=== PATIENT | female | born 1990 | race Caucasian/White ===

== ENCOUNTER 2017-09-10 05:53 | Emergency (ER) | payer MEDICAID ==
[2017-09-10 05:58] VITALS: BP 125/82
[2017-09-10] MEDS ORDERED: DEXAMETHASONE 10 MG/ML VIAL PO STA (06:12)
--- NOTE | 2017-09-10 06:15 | ED Physician Documentation ---
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 She is having some difficulty swallowing she has had some chills she has had minimal cough. Review of Systems Constitutional: reports: Chills. denies: Fever Eyes: denies: Decreased vision Ears: denies: Ear pain Nose: reports: Congestion Throat: reports: Sore throat Cardiac: denies: Chest pain / pressure, Palpitations Respiratory: reports: Cough. 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 - Present Medications Home Medications: Ambulatory Orders Medication Instructions Recorded Confirmed Levonorgestrel [Mirena] 1 unit .ROUTE .FREQ 06/21/16 09/10/17 Amox/Clav 875/125 [Augmentin] 1 each PO Q12H #20 tablet 09/10/17 - Allergies Allergies/Adverse Reactions: Allergies Allergy/AdvReac Type Severity Reaction Status Date / Time azithromycin Allergy Intermediate Rash Verified 09/10/17 06:09 [From Zithromax Z-Álvaro] - Social History Does the pt smoke?: No Smoking Status: Never smoker Does the pt drink ETOH?: Yes Does the pt have substance abuse?: No - Immunizations Immunizations are current?: Yes - POLST Patient has POLST: No PD ED PE NORMAL - Vitals Vital signs reviewed: Yes (hypertensive ) - General General: No acute distress, Well developed/nourished - HEENT HEENT: Atraumatic, PERRL, EOMI, Ears normal, Other (the pharynx is with 2+ tonsils with crypts and exudate) - Neck Neck: Supple, no meningeal sign, No bony TTP, Other (tender submandibular adenopathy) - Cardiac Cardiac: RRR, No murmur - Respiratory Respiratory: No respiratory distress, Clear bilaterally - Abdomen Abdomen: Soft, Non tender - Back Back: No CVA TTP, No spinal TTP - Derm Derm: Normal color, Warm and dry, No rash - Extremities Extremities: No deformity, No edema - Neuro Neuro: No motor deficit, No sensory deficit - Psych Psych: Normal mood, Normal affect Results - Vitals Vitals: Vital Signs - 24 hr 09/10/17 05:57 Temperature 36.6 C Heart Rate 77 Respiratory 16 Rate Blood Pressure 125/82 H O2 Saturation 98 Oxygen O2 Source Room air - Labs Labs: Laboratory Tests 09/10/17 06:15 Group A Strep Rapid Negative PD MEDICAL DECISION MAKING - ED course Complexity details: considered differential, d/w patient ED course: 27-year-old female with history of strep pharyngitis is developed a sore throat strep swab is pending. Strep is negative. The patient is administered decadron and we will put her on some augmentin. Departure - Departure Disposition: 01 Home, Self Care Clinical Impression: Tonsillitis with exudate Condition: Stable Instructions: ED Peritonsillar Infec Abx No I andD Follow-Up: [facility] [Provider Group] Prescriptions: Amox/Clav 875/125 [Augmentin] 1 each PO Q12H #20 tablet Comments: Today in the Emergency Department your blood pressure was elevated. This can happen from the stress of the visit itself, from a current illness or circumstance or from uncontrolled hypertension. If you take blood pressure medications take your usual mediations, have your blood pressure re-checked in an appropriate setting and follow up any elevation with your primary care doctor. Forms: Activity restrictions
[2017-09-10] MEDS ORDERED: DEXAMETHASONE 10 MG/ML VIAL ONE (06:22)
[2017-09-10] MEDS ORDERED: CHERRY SYRUP 10 ML UDC PO ONE (06:22)
[2017-09-10 06:29] LABS: RAPID STREP SCREEN REAGENT QC YELLOW (YELLOW)
== END 2017-09-10 07:00 | disposition home or self-care (01) ==
LOC: ED 05:53
DX: J03.90 Acute tonsillitis, unspecified (principal); R03.0 Elevated blood-pressure reading, without diagnosis of hypertension
CPT/HCPCS: 87070; 87430; 99283; A9270

== ENCOUNTER 2018-08-26 19:04 | Emergency (ER) | payer MEDICAID ==
[2018-08-26] MEDS ORDERED: ACETAMINOPHEN 325 MG TABLET PO STA (19:26)
[2018-08-26] MEDS ORDERED: SODIUM CHLORIDE 0.9% 1,000 ML IV ONE (19:26)
--- NOTE | 2018-08-26 19:27 | ED Physician Documentation ---
History of Present Illness - Stated complaint Stated Complaint: FEVER/CONFUSION - Chief complaint Chief Complaint: Fever - History obtained from History obtained from: Patient, Family - History of Present Illness Timing: Yesterday (Previously healthy 28-year-old woman with history of Bartholin cyst. She had a Bartholin cyst for the last 2 weeks on the left that ruptured on its own and is much better now but starting yesterday has had fevers and chills and body aches and today has a headache and feels terrible. She has had some urinary frequency without dysuria. Denies cough, sore throat, runny nose.) Review of Systems Ten Systems: 10 systems reviewed and negative Constitutional: reports: Fever, Chills, Fatigue Ears: denies: Drainage/discharge Nose: denies: Rhinorrhea / runny nose, Congestion, Epistaxis Throat: denies: Sore throat Respiratory: denies: Dyspnea, Cough GI: denies: Abdominal Pain, Nausea, Vomiting : reports: Frequency. 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 - Present Medications Home Medications: Ambulatory Orders Medication Instructions Recorded Confirmed Levonorgestrel [Mirena] 1 unit .ROUTE .FREQ 06/21/16 09/10/17 Amox/Clav 875/125 [Augmentin] 1 each PO Q12H #20 tablet 09/10/17 Amox/Clav 875/125 [Augmentin 1 tab PO BID 10 Days #20 tablet 08/26/18 875/125] - Allergies Allergies/Adverse Reactions: Allergies Allergy/AdvReac Type Severity Reaction Status Date / Time azithromycin Allergy Intermediate Rash Verified 09/10/17 06:09 [From Zithromax Z-Álvaro] - Social History Does the pt smoke?: No Smoking Status: Never smoker Does the pt drink ETOH?: Yes Does the pt have substance abuse?: No - Immunizations Immunizations are current?: Yes - POLST Patient has POLST: No PD ED PE NORMAL - Vitals Vital signs reviewed: Yes (Fairly tachycardic) - General General: Alert and oriented X 3, No acute distress, Well developed/nourished - HEENT HEENT: PERRL, EOMI - Neck Neck: Supple, no meningeal sign, No bony TTP - Cardiac Cardiac: RRR, No murmur - Respiratory Respiratory: No respiratory distress, Clear bilaterally - Abdomen Abdomen: Normal bowel sounds, Soft, Non tender - Female Female : Waterproofing Supervisor present (Jazz Wheeler RN), Other (Small residual left Bartholin cyst without fluctuance or fluid-filled. She is not tender.) - Back Back: No CVA TTP, No spinal TTP - Derm Derm: Normal color, Warm and dry - Extremities Extremities: No edema, No calf tenderness / cord - Neuro Neuro: Alert and oriented X 3, Normal speech Results - Vitals Vitals: Vital Signs - 24 hr 08/26/18 08/26/18 08/26/18 19:08 19:30 20:04 Temperature 38.4 C H Heart Rate 131 H 122 H 116 H Respiratory 22 20 18 Rate Blood Pressure 148/89 H 134/78 H 128/58 L O2 Saturation 97 99 98 08/26/18 20:19 Temperature Heart Rate 105 H Respiratory 19 Rate Blood Pressure 120/54 L O2 Saturation 98 Oxygen O2 Source Room air - Labs Labs: Laboratory Tests 08/26/18 08/26/18 08/26/18 19:35 19:35 19:35 WBC 15.0 H RBC 4.79 Hgb 14.1 Hct 41.3 MCV 86.2 MCH 29.5 MCHC 34.3 RDW 13.4 Plt Count 286 MPV 8.0 Neut # (Auto) 12.2 H Lymph # (Auto) 1.5 [place] # (Auto) 1.0 Eos # (Auto) 0.2 Baso # (Auto) 0.1 Absolute Nucleated RBC 0.01 Nucleated RBC % 0.1 Sodium 137 Potassium 3.8 Chloride 105 Carbon Dioxide 23 Anion Gap 9.0 BUN 11 Creatinine 0.6 Estimated GFR (MDRD) 118 Glucose 103 H Lactic Acid 1.0 Calcium 9.0 Total Bilirubin 0.6 AST 38 ALT 49 Alkaline Phosphatase 74 Total Protein 8.2 Albumin 4.1 Globulin 4.1 Albumin/Globulin Ratio 1.0 Lipase 25 Serum HCG, Qual Urine Color Urine Clarity Urine pH Ur Specific [place] Urine Protein Urine Glucose (UA) Urine Ketones Urine Occult Blood Urine Nitrite Urine Bilirubin Urine Urobilinogen Ur Leukocyte Esterase Urine RBC Urine WBC Ur Squamous Epith Cells Urine Bacteria Ur Microscopic Review Urine Culture Comments Influenza A (Rapid) Influenza B (Rapid) 09/08/26/18 08/26/18 19:35 19:47 20:00 WBC RBC Hgb Hct MCV MCH MCHC RDW Plt Count MPV Neut # (Auto) Lymph # (Auto) [place] # (Auto) Eos # (Auto) Baso # (Auto) Absolute Nucleated RBC Nucleated RBC % Sodium Potassium Chloride Carbon Dioxide Anion Gap BUN Creatinine Estimated GFR (MDRD) Glucose Lactic Acid Calcium Total Bilirubin AST ALT Alkaline Phosphatase Total Protein Albumin Globulin Albumin/Globulin Ratio Lipase Serum HCG, Qual NEGATIVE Urine Color YELLOW Urine Clarity CLEAR Urine pH 6.0 Ur Specific [place] 1.025 Urine Protein TRACE Urine Glucose (UA) NEGATIVE Urine Ketones NEGATIVE Urine Occult Blood MODERATE H Urine Nitrite NEGATIVE Urine Bilirubin NEGATIVE Urine Urobilinogen 0.2 (NORMAL) Ur Leukocyte Esterase NEGATIVE Urine RBC 0-5 Urine WBC 0-3 Ur Squamous Epith Cells MANY Squamous H Urine Bacteria Rare Ur Microscopic Review INDICATED Urine Culture Comments NOT INDICATED Influenza A (Rapid) Negative Influenza B (Rapid) Negative PD MEDICAL DECISION MAKING - ED course ED course: 28-year-old woman with fever chills body aches, also fever and significant tachycardia. She does have a white count, but her lactate and other labs are reassuring. No pertinent findings on chest x-ray or urinalysis. She has a Bartholin cyst that really does not look too bad. It could be that, but I doubt it, some other virus or unidentified bacterial infection. I think it is reasonable to start her on Unasyn for broad-spectrum coverage and Bartholin cyst coverage. After 1 L of IV fluids her heart rate was down into the 105-110 range. - Sepsis Event Vital Signs: Vital Signs - 24 hr 08/26/18 08/26/18 08/26/18 19:08 19:30 20:04 Temperature 38.4 C H Heart Rate 131 H 122 H 116 H Respiratory 22 20 18 Rate Blood Pressure 148/89 H 134/78 H 128/58 L O2 Saturation 97 99 98 08/26/18 20:19 Temperature Heart Rate 105 H Respiratory 19 Rate Blood Pressure 120/54 L O2 Saturation 98 Oxygen O2 Source Room air Departure - Departure Disposition: 01 Home, Self Care Clinical Impression: Bartholin cyst Fever Qualifiers: Fever type: due to other condition Qualified Code(s): R50.81 - Fever presenting with conditions classified elsewhere Condition: Good Record reviewed to determine appropriate education?: Yes Instructions: ED Fever Unconf Cause, ED Bartholins Cyst No Infec Prescriptions: Amox/Clav 875/125 [Augmentin 875/125] 1 tab PO BID 10 Days #20 tablet Comments: Return anytime if worse or if new symptoms develop. Drink plenty of fluids and he can take Tylenol or ibuprofen for that body aches and fevers. Forms: Activity restrictions
[2018-08-26 19:42] LABS: BASOPHILS # (AUTO) 0.1 10^3/uL (0.0-0.1); BASOPHILS % (AUTO) 0.3 %; EOSINOPHILS # (AUTO) 0.2 10^3/uL (0.0-0.7); EOSINOPHILS % (AUTO) 1.7 %; HGB - HEMOGLOBIN 14.1 g/dL (12.0-16.0); LYMPHOCYTES # (AUTO) 1.5 10^3/uL (1.5-3.5); LYMPHOCYTES % (AUTO) 9.9 %; MEAN CORPUSCULAR HEMOGLOBIN 29.5 pg (27.0-31.0); MEAN CORPUSCULAR HGB CONC 34.3 g/dL (32.0-36.0); MEAN CORPUSCULAR VOLUME 86.2 fL (81.0-99.0); MONOCYTES % (AUTO) 6.5 %; NEUTROPHILS # (AUTO) 12.2 10^3/uL (1.5-6.6); NEUTROPHILS % (AUTO) 81.6 %; PLT - PLATELET COUNT 286 10^3/uL (130-450); RED BLOOD COUNT 4.79 10^6/uL (4.20-5.40); RED CELL DISTRIBUTION WIDTH 13.4 % (12.0-15.0)
[2018-08-26 19:54] LABS: ALBUMIN 4.1 g/dL (3.2-5.5); BILIRUBIN,TOTAL 0.6 mg/dL (0.2-1.0); CREATININE 0.6 mg/dL (0.4-1.0); TOTAL PROTEIN 8.2 g/dL (6.7-8.2)
[2018-08-26 20:00] LABS: BILIRUBIN,URINE NEGATIVE (NEGATIVE); GLUCOSE, URINE (UA) NEGATIVE (NEGATIVE); KETONES,URINE (UA) NEGATIVE (NEGATIVE); LEUKOCYTE ESTERASE, URINE NEGATIVE (NEGATIVE); NITRITE,URINE NEGATIVE (NEGATIVE); OCCULT BLOOD,URINE MODERATE (NEGATIVE); PROTEIN,URINE TRACE mg/dL (NEGATIVE); UROBILINOGEN,URINE 0.2 (NORMAL) E.U./dL (NORMAL)
[2018-08-26 20:01] LABS: CLARITY,URINE CLEAR (CLEAR)
--- NOTE | 2018-08-26 20:03 | XRAY Report ---
Reason: fever Procedure Date: 08/26/2018 Accession Number: [id number] / [id number] Procedure: XR - Chest 1 View X-Ray CPT Code: 62112 FULL RESULT: EXAM: CHEST RADIOGRAPHY EXAM DATE: 08/26/2018 07:31 PM. CLINICAL HISTORY: Fever. COMPARISON: CHEST 2 VIEW PA/LAT 04/11/2014 4:14 PM. TECHNIQUE: 1 view. FINDINGS: Lungs/Pleura: No focal opacities evident. No pleural effusion. No pneumothorax. Mediastinum: Within exam limitations, the cardiomediastinal contour is normal. Other: None. IMPRESSION: Normal single view chest. RADIA
[2018-08-26 20:04] LABS: HCG,QUALITATIVE BLOOD NEGATIVE
[2018-08-26 20:10] LABS: BACTERIA,URINE Rare /HPF (None Seen); RBC,URINE 0-5 /HPF (0-5); SQUAMOUS EPITHELIAL CELL,UR MANY Squamous (<= Few)
[2018-08-26] MEDS ORDERED: AMPICILLIN/SULBACTAM 3 GM in SODIUM CHLORIDE 0.9% MINIBAG 100 ML IV STA (20:25)
[2018-08-26 21:15] VITALS: BP 120/59
== END 2018-08-26 21:18 | disposition home or self-care (01) ==
LOC: ED 19:04
DX: N75.0 Cyst of Bartholin's gland (principal); R50.81 Fever presenting with conditions classified elsewhere; D72.89 Other specified disorders of white blood cells
CPT/HCPCS: 36415; 71045; 80053; 81001; 83605; 83690; 84703; 85025; 87040; 87275; 87276; 96365; 99283; 99284; A9270; 81003; 87086

== ENCOUNTER 2020-08-29 16:15 | Outpatient (CLI) | payer MEDICAID, OTHER ==
[2020-08-29 18:39] LABS: BASOPHILS # (AUTO) 0.1 10^3/uL (0.0-0.1); BASOPHILS % (AUTO) 0.3 %; EOSINOPHILS # (AUTO) 0.3 10^3/uL (0.0-0.7); EOSINOPHILS % (AUTO) 2.3 %; HGB - HEMOGLOBIN 13.7 g/dL (12.0-16.0); LYMPHOCYTES # (AUTO) 3.4 10^3/uL (1.5-3.5); LYMPHOCYTES % (AUTO) 23.7 %; MEAN CORPUSCULAR HEMOGLOBIN 29.2 pg (27.0-31.0); MEAN CORPUSCULAR HGB CONC 32.5 g/dL (32.0-36.0); MEAN PLATELET VOLUME 10.5 fL (7.9-10.8); MONOCYTES # (AUTO) 0.8 10^3/uL (0.0-1.0); MONOCYTES % (AUTO) 5.4 %; NEUTROPHILS # (AUTO) 9.8 10^3/uL (1.5-6.6); NEUTROPHILS % (AUTO) 67.9 %; PLT - PLATELET COUNT 327 10^3/uL (130-450); RED BLOOD COUNT 4.69 10^6/uL (4.20-5.40); RED CELL DISTRIBUTION WIDTH 12.5 % (12.0-15.0); WHITE BLOOD COUNT 14.5 x10^3/uL (4.8-10.8)
[2020-08-29 18:53] LABS: ALBUMIN 4.4 g/dL (3.2-5.5); ALBUMIN/GLOBULIN RATIO 1.3 (1.0-2.2); BILIRUBIN,TOTAL 0.4 mg/dL (0.2-1.0); CALCIUM 9.3 mg/dL (8.5-10.3); CREATININE 0.6 mg/dL (0.4-1.0); TOTAL PROTEIN 7.8 g/dL (6.7-8.2)
== END 2020-08-29 23:59 | disposition home or self-care (01) ==
LOC: LAB.WCP 16:15
PROVIDERS: ATTEND Nurse Practitioner Family
DX: L65.9 Nonscarring hair loss, unspecified (principal); F32.9 Major depressive disorder, single episode, unspecified
CPT/HCPCS: 36415; 80053; 84443; 85025

== ENCOUNTER 2020-09-05 13:57 | Outpatient (CLI) | payer MEDICAID, OTHER ==
[2020-09-05 18:30] LABS: BASOPHILS # (AUTO) 0.1 10^3/uL (0.0-0.1); BASOPHILS % (AUTO) 0.6 %; BILIRUBIN,URINE NEGATIVE (NEGATIVE); EOSINOPHILS # (AUTO) 0.4 10^3/uL (0.0-0.7); EOSINOPHILS % (AUTO) 3.5 %; GLUCOSE, URINE (UA) NEGATIVE (NEGATIVE); HGB - HEMOGLOBIN 13.1 g/dL (12.0-16.0); KETONES,URINE (UA) NEGATIVE (NEGATIVE); LEUKOCYTE ESTERASE, URINE NEGATIVE (NEGATIVE); LYMPHOCYTES % (AUTO) 28.9 %; MEAN CORPUSCULAR HEMOGLOBIN 29.1 pg (27.0-31.0); MEAN CORPUSCULAR VOLUME 91.1 fL (81.0-99.0); MEAN PLATELET VOLUME 10.6 fL (7.9-10.8); MONOCYTES # (AUTO) 0.8 10^3/uL (0.0-1.0); MONOCYTES % (AUTO) 7.9 %; NEUTROPHILS # (AUTO) 6.1 10^3/uL (1.5-6.6); NEUTROPHILS % (AUTO) 58.7 %; NITRITE,URINE NEGATIVE (NEGATIVE); OCCULT BLOOD,URINE TRACE-INTA (NEGATIVE); PH,URINE 7.5 PH (5.0-7.5); PLT - PLATELET COUNT 276 10^3/uL (130-450); PROTEIN,URINE NEGATIVE (NEGATIVE); RED CELL DISTRIBUTION WIDTH 12.7 % (12.0-15.0); UROBILINOGEN,URINE 0.2 (NORMAL) E.U./dL (NORMAL); WHITE BLOOD COUNT 10.4 x10^3/uL (4.8-10.8)
[2020-09-05 18:43] LABS: CLARITY,URINE HAZY (CLEAR); RBC,URINE 0-5 /HPF (0-5); SQUAMOUS EPITHELIAL CELL,UR NONE SEEN (<= Few)
[2020-09-05 18:44] LABS: AMORPHOUS SEDIMENT,UR Moderate /LPF; BACTERIA,URINE None Seen /HPF (None Seen)
== END 2020-09-05 23:59 | disposition home or self-care (01) ==
LOC: LAB.WCP 13:57
PROVIDERS: ATTEND Nurse Practitioner Family
DX: D72.829 Elevated white blood cell count, unspecified (principal); R35.0 Frequency of micturition
CPT/HCPCS: 36415; 81001; 85025; 87086

== ENCOUNTER 2021-02-28 20:43 | Emergency (ER) | payer OTHER ==
[2021-02-28 21:27] VITALS: BP 146/70
--- NOTE | 2021-02-28 21:37 | ED Physician Documentation ---
PD HPI SKIN - Stated complaint Stated Complaint: CYST ON CHEST - Chief complaint Chief Complaint: Wound - History obtained from History obtained from: Patient - History of Present Illness Timing - onset: How many days ago (5) Timing - duration: Days (5) Timing - details: Gradual onset Pain level now: 4 Location: Chest (right breast) Quality / character: Painful, Discolored, Raised, Swelling. No: Draining Associated symptoms: Fever (Tmax 101.4), Myalgias, N/V/D (nausea) Similar symptoms before: Diagnosis (has had abscesses in other locations but not on breast before) Recently seen: Not recently seen - Additional information Additional information: c/o right breast "cyst" (per patient) that she first noticed 5 days ago; it has gradually enlarged and become increasingly painful/tender and swollen. She denies and is not breast-feeding. She reports fever starting today with Tmax 101.4 associated with nausea, decreased appetite, generalized myalgias Review of Systems Constitutional: reports: Fever, Myalgias. 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 Medications Home Medications: Ambulatory Orders Medication Instructions Recorded Confirmed Doxycycline Hyclate [Vibramycin] 100 mg PO BID #20 cap 02/28/21 Iud 02/28/21 Ondansetron Odt [Zofran Odt] 4 mg TL Q6H PRN #10 tablet 02/28/21 Sertraline HCl 100 mg PO DAILY 02/28/21 02/28/21 - Allergies Allergies/Adverse Reactions: Allergies Allergy/AdvReac Type Severity Reaction Status Date / Time azithromycin Allergy Intermediate Rash Verified 02/28/21 20:51 [From Zithromax Z-Álvaro] - Social History Does the pt smoke?: No Smoking Status: Never smoker Does the pt drink ETOH?: Yes Does the pt have substance abuse?: No - Immunizations Immunizations are current?: Yes - POLST Patient has POLST: No PD ED PE NORMAL - Vitals Vital signs reviewed: Yes - General General: Alert and oriented X 3, No acute distress, Well developed/nourished - Neck Neck: Supple, no meningeal sign PD ED PE EXPANDED - Female 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 the lesion is slightly raised, moderately tender, but without fluctuance. palpable firm borders indicate sub-centimeter subcutaneous nodule) Results - Vitals Vitals: Vital Signs - 24 hr 02/28/21 02/28/21 20:47 21:25 Temperature 37.3 C 37.3 C Heart Rate 102 H 100 Respiratory 16 16 Rate Blood Pressure 146/71 H 146/70 H O2 Saturation 99 100 Oxygen O2 Source Room air PD MEDICAL DECISION MAKING - ED course Complexity details: considered differential, d/w patient ED course: lesion on right breast is mostly comprised of [id number] raised erythema, c/w cellulitis. There is a sub-centimeter central firmness without fluctuance that might represent induration or possibly abscess, but this would be too small of an area to indicate I+D at this time. will rx doxycycine (first dose in ED) and instructed to return if worse, but f/u with PMD (ideally Thursday so antibiotic will have had time to take effect) Departure - Departure Disposition: Home, Self Care Clinical Impression: Abscess Condition: Good Instructions: ED Staph Infec Abx Tx Only Prescriptions: Doxycycline Hyclate [Vibramycin] 100 mg PO BID #20 cap Ondansetron Odt [Zofran Odt] 4 mg TL Q6H PRN #10 tablet PRN Reason: Nausea / Vomiting Discharge Date/Time: 02/28/21 21:58
[2021-02-28] MEDS ORDERED: DOXYCYCLINE 100 MG TABLET PO STA (21:49)
--- OUTSIDE RECORDS SUMMARY | 2021-03-06 01:24 | EXTERNAL MEDICAL SUMMARY RPT | Continuity of Care Document ---
:1990 Demographics Phone Unavailable Preferred Language Unknown Marital Status Unknown Zoroastrian Affiliation Unknown Race Unknown Ethnic Group Unknown Author Organization [facility] Address [address] [place] [address] Phone Social History date description facility [id number]
== END 2021-02-28 21:58 | disposition home or self-care (01) ==
LOC: ED 20:43
DX: N61.1 Abscess of the breast and nipple (principal); R11.0 Nausea
CPT/HCPCS: 99282; 99283; A9270

== ENCOUNTER 2021-07-07 20:15 | Emergency (ER) | payer OTHER ==
[2021-07-07] MEDS ORDERED: LIDOCAINE 2%-EPI 1:100000 20 ML MDV SUBQ STA (20:59)
--- NOTE | 2021-07-07 21:27 | ED Physician Documentation ---
History of Present Illness - Stated complaint Stated Complaint: MASS IN RT THIGH/NAUSEA - Chief complaint Chief Complaint: Wound - History obtained from History obtained from: Patient, Family - History of Present Illness Timing: Chronic Pain level max: 4 Pain level now: 4 - Additonal information Additional information: 30-year-old female complains of a cyst to the right thigh, has been there for many years, started increasing in size and pain recently. Has had other cysts similar drained in the past. Nothing makes it better or worse. Has had occasional nausea. No fever. Occasional chills. 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 - Present Medications Home Medications: Ambulatory Orders Medication Instructions Recorded Confirmed Iud 02/28/21 Sertraline HCl 100 mg PO DAILY 02/28/21 07/07/21 Multivitamin 1 tab PO DAILY 07/07/21 07/07/21 - Allergies Allergies/Adverse Reactions: Allergies Allergy/AdvReac Type Severity Reaction Status Date / Time azithromycin Allergy Intermediate Rash Verified 02/28/21 20:51 [From Zithromax Z-Álvaro] - Social History Does the pt smoke?: Yes Smoking Status: Current every day smoker Does the pt drink ETOH?: No Does the pt have substance abuse?: No - Immunizations Immunizations are current?: Yes - POLST Patient has POLST: No PD ED PE NORMAL - Vitals Vital signs reviewed: Yes - General General: Alert and oriented X 3, No acute distress - Derm Derm: Warm and dry - Extremities Extremities: Other (2 x 2 centimeter swelling to the right medial thigh, proximal aspect. There is fluctuance but no erythema. No skin changes.) - Neuro Neuro: Alert and oriented X 3 Results - Vitals Vitals: Vital Signs - 24 hr 07/07/21 07/07/21 20:18 21:50 Temperature 37 C 36.7 C Heart Rate 91 84 Respiratory 16 16 Rate Blood Pressure 131/71 H 121/73 O2 Saturation 100 98 Oxygen O2 Source Room air Procedures - Abscess I&D (location) Right thigh Preparation: Confirmed with ultrasound, Lidocaine 2% Incision: Incised with scalpel, Packed, Culture obtained, Other (Thick white drainage) Other: Pt tolerated well, Dressing applied PD MEDICAL DECISION MAKING - ED course Complexity details: considered differential, d/w patient ED course: 30-year-old female appears to have a sebaceous cyst on the right thigh. Does not appear infected. This was incised and drained. Cyst sac was unable to be removed. She will follow up with dermatology for this. Wound culture was obtained. We will hold antibiotics as it does not appear to be active infection. No cellulitis. Patient counseled regarding signs and symptoms for which I believe and urgent re-evaluation would be necessary. Patient with good understanding of and agreement to plan and is comfortable going home at this time This document was made in part using voice recognition software. While efforts are made to proofread this document, sound alike and grammatical errors may occur. Departure - Departure Disposition: 01 Home, Self Care Clinical Impression: Sebaceous cyst Condition: Good Instructions: ED Cyst Sebaceous Follow-Up: [facility] [Provider Group] Comments: Follow-up with dermatology for possible sac removal. Surgery may do this as well. Return if you worsen. Keep the wound clean. The packing can be removed in 2 to 3 days. If your culture is positive, we will call to check on you and see if you need antibiotics at that time. Forms: Activity restrictions Discharge Date/Time: 07/07/21 21:51
[2021-07-07 21:51] VITALS: BP 121/73
== END 2021-07-07 21:51 | disposition home or self-care (01) ==
LOC: ED 20:15
DX: L72.3 Sebaceous cyst (principal); F17.200 Nicotine dependence, unspecified, uncomplicated
CPT/HCPCS: 10061; 87070; 87205

== ENCOUNTER 2021-11-08 15:25 | Outpatient (CLI) | payer OTHER | END 2021-11-08 23:59 | disposition home or self-care (01) | LOC: LAB.N 15:25 | PROVIDERS: ATTEND Family Medicine | DX: R07.0 Pain in throat (principal) | CPT/HCPCS: 87070 ==

== ENCOUNTER 2022-02-03 13:19 | Outpatient (CLI) | payer OTHER ==
[2022-02-03 13:31] LABS: BASOPHILS # (AUTO) 0.1 10^3/uL (0.0-0.1); BASOPHILS % (AUTO) 0.6 %; EOSINOPHILS # (AUTO) 0.4 10^3/uL (0.0-0.7); EOSINOPHILS % (AUTO) 3.8 %; HGB - HEMOGLOBIN 14.3 g/dL (12.0-16.0); LYMPHOCYTES # (AUTO) 3.4 10^3/uL (1.5-3.5); LYMPHOCYTES % (AUTO) 31.3 %; MEAN CORPUSCULAR HEMOGLOBIN 29.1 pg (27.0-31.0); MEAN CORPUSCULAR HGB CONC 33.3 g/dL (32.0-36.0); MEAN CORPUSCULAR VOLUME 87.6 fL (81.0-99.0); MEAN PLATELET VOLUME 10.1 fL (7.9-10.8); MONOCYTES # (AUTO) 0.8 10^3/uL (0.0-1.0); MONOCYTES % (AUTO) 7.8 %; NEUTROPHILS % (AUTO) 56.2 %; PLT - PLATELET COUNT 278 10^3/uL (130-450); RED BLOOD COUNT 4.91 10^6/uL (4.20-5.40); RED CELL DISTRIBUTION WIDTH 12.7 % (12.0-15.0); WHITE BLOOD COUNT 10.7 x10^3/uL (4.8-10.8)
[2022-02-03 13:46] LABS: ALBUMIN 4.4 g/dL (3.2-5.5); ALBUMIN/GLOBULIN RATIO 1.3 (1.0-2.2); BILIRUBIN,TOTAL 0.8 mg/dL (0.2-1.0); CALCIUM 9.2 mg/dL (8.5-10.3); CREATININE 0.7 mg/dL (0.4-1.0); POTASSIUM 3.5 mmol/L (3.5-5.0); TOTAL PROTEIN 7.9 g/dL (6.7-8.2)
[2022-02-03 14:00] LABS: HCG,QUALITATIVE BLOOD NEGATIVE
== END 2022-02-03 13:20 | disposition home or self-care (01) ==
LOC: LAB 13:19
PROVIDERS: ATTEND Nurse Practitioner
DX: N91.2 Amenorrhea, unspecified (principal); R53.83 Other fatigue
CPT/HCPCS: 36415; 80053; 84703; 85025

== ENCOUNTER 2022-08-14 17:03 | Emergency (ER) | payer OTHER ==
--- NOTE | 2022-08-14 17:33 | ED Physician Documentation ---
PD HPI FEMALE - Stated complaint Stated Complaint: CRAMPING & SPOTTING - Chief complaint Chief Complaint: Abd Pain - History obtained from History obtained from: Patient - History of Present Illness Timing - onset: How many days ago (2) Timing - duration: Days Timing - details: Gradual onset, Still present (increased from spotting to bleeding with saturation of pad x few this morning. Lessening this afternoon but still lower abd cramps. Feeling similar to prior miscarriages of years ago.), Waxing and waning Associated symptoms: Abdominal pain, Pelvic pain, Vaginal bleeding. 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 denies: Vomiting, Diarrhea : reports: Vaginal bleeding, Now EGA. denies: Dysuria, Frequency, Discharge Neurologic: reports: Generalized weakness. 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 ) Psych: Anxiety - Past Surgical History Past Surgical History: Yes Ortho: Other /STORAGE SOLUTIONS ARCHITECT: section - Present Medications Home Medications: Ambulatory Orders Medication Instructions Recorded Confirmed Iud 02/28/21 Sertraline HCl 100 mg PO DAILY 02/28/21 07/07/21 Multivitamin 1 tab PO DAILY 07/07/21 07/07/21 - Allergies Allergies/Adverse Reactions: Allergies Allergy/AdvReac Type Severity Reaction Status Date / Time azithromycin Allergy Intermediate Rash Verified 08/14/22 17:06 [From Zithromax Z-Álvaro] - Social History Does the pt smoke?: Yes Smoking Status: Current every day smoker Does the pt drink ETOH?: No Does the pt have substance abuse?: No - Immunizations Immunizations are current?: Yes - POLST Patient has POLST: No PD ED PE NORMAL - Vitals Vital signs reviewed: Yes - General General: Alert and oriented X 3, Well developed/nourished - Neck Neck: Supple, no meningeal sign, No adenopathy - Cardiac Cardiac: RRR, No murmur - Respiratory Respiratory: Clear bilaterally - Abdomen Abdomen: Normal bowel sounds, Soft, Non distended, No organomegaly, Other (mild tender suprapubic withut percusssion tender nor rebound. ) - Female Female : Deferred - Back Back: No CVA TTP - Derm Derm: Normal color, Warm and dry Results - Vitals Vitals: Vital Signs - 24 hr 08/14/22 08/14/22 17:06 19:10 Temperature 36.5 C Heart Rate 82 74 Respiratory 16 18 Rate Blood Pressure 138/83 H 139/79 H O2 Saturation 97 98 Oxygen O2 Source Room air - Labs Labs: Laboratory Tests 08/14/22 08/14/22 08/14/22 17:58 17:58 17:58 WBC 11.4 H RBC 4.77 Hgb 14.0 Hct 41.3 MCV 86.6 MCH 29.4 MCHC 33.9 RDW 12.2 Plt Count 275 MPV 9.9 Neut # (Auto) 6.3 Lymph # (Auto) 3.8 H [place] # (Auto) 0.8 Eos # (Auto) 0.5 Baso # (Auto) 0.1 Absolute Nucleated RBC 0.00 Nucleated RBC % 0.0 Sodium 139 Potassium 3.6 Chloride 105 Carbon Dioxide 27 Anion Gap 7.0 BUN 14 Creatinine 0.9 Estimated GFR (MDRD) 72 L Glucose 102 H Calcium 9.1 Total Bilirubin 0.3 AST 21 ALT 30 Alkaline Phosphatase 54 Total Protein 7.5 Albumin 4.1 Globulin 3.4 Albumin/Globulin Ratio 1.2 Lipase 26 HCG, Quant 9.29 Urine Color Urine Clarity Urine pH Ur Specific [place] Urine Protein Urine Glucose (UA) Urine Ketones Urine Occult Blood Urine Nitrite Urine Bilirubin Urine Urobilinogen Ur Leukocyte Esterase Urine RBC Urine WBC Ur Squamous Epith Cells Amorphous Sediment Urine Bacteria Ur Microscopic Review Urine Culture Comments Urine HCG, Qual 08/14/22 18:03 WBC RBC Hgb Hct MCV MCH MCHC RDW Plt Count MPV Neut # (Auto) Lymph # (Auto) [place] # (Auto) Eos # (Auto) Baso # (Auto) Absolute Nucleated RBC Nucleated RBC % Sodium Potassium Chloride Carbon Dioxide Anion Gap BUN Creatinine Estimated GFR (MDRD) Glucose Calcium Total Bilirubin AST ALT Alkaline Phosphatase Total Protein Albumin Globulin Albumin/Globulin Ratio Lipase HCG, Quant Urine Color YELLOW Urine Clarity CLEAR Urine pH 7.0 Ur Specific [place] 1.020 Urine Protein NEGATIVE Urine Glucose (UA) NEGATIVE Urine Ketones NEGATIVE Urine Occult Blood MODERATE H Urine Nitrite NEGATIVE Urine Bilirubin NEGATIVE Urine Urobilinogen 0.2 (NORMAL) Ur Leukocyte Esterase NEGATIVE Urine RBC TNTC H Urine WBC 0-3 Ur Squamous Epith Cells FEW Squamous Amorphous Sediment Moderate Urine Bacteria Few Ur Microscopic Review INDICATED Urine Culture Comments NOT INDICATED Urine HCG, Qual NEGATIVE - Rads (name of study) OB U/S Radiology: Prelim report reviewed (no IUP. right ovarian complex cyst (hemorrhagic) 2.5 cm, wiht small amount right pelvic fluid. ), Discussed with rads (could be concerning for ectopic, if her HCG rises. ), See rad report PD MEDICAL DECISION MAKING - ED course Complexity details: reviewed results (Quant HCG very low at 9. This is more c/w IUFD and now miscarriage rather than early , but needs confirmatory repeat HCG test in 3 days.), re-evaluated patient (understanding of results and short term plan. ), considered differential (consider miscarriage vs bleeding in normal , ectopic, UTI, other concerns.), d/w patient Departure - Departure Disposition: 01 Home, Self Care Clinical Impression: Early stage of , Vaginal bleeding affecting early Condition: Stable Instructions: ED Miscarriage Poss Follow-Up: [facility] [Provider Group] Lydia Shafer ARNP [Primary Care Provider] - Comments: Your ultrasound does not show any intrauterine . There is a small 1 inch cyst on the right ovary and several small ones on the left. There is a little bit of fluid in the right pelvis. This could possibly represent a small leaking of the cyst. Your quantitative hCG blood test was very low. This may still represent very early and thus no findings on the ultrasound. Alternative would be that there is miscarriage happened/happening and therefore the hCG level has fallen off with the known viability of the . Unfortunately will be hard to differentiate without a repeat of the hCG blood test in about 3 days. With that we will see whether the numbers going up or down. Meanwhile I would anticipate the bleeding to taper down and improve in the next day or 2. Tylenol or ibuprofen if needed for pains. Follow-up with your primary care clinic or the women's health clinic. Call tomorrow for follow-up appointment presumably for Thursday or Thursday. Have the repeat hCG test on in 3 days. Discharge Date/Time: 08/14/22 19:10
[2022-08-14 18:04] LABS: BASOPHILS # (AUTO) 0.1 10^3/uL (0.0-0.1); BASOPHILS % (AUTO) 0.4 %; EOSINOPHILS # (AUTO) 0.5 10^3/uL (0.0-0.7); EOSINOPHILS % (AUTO) 4.1 %; HCT - HEMATOCRIT 41.3 % (37.0-47.0); LYMPHOCYTES # (AUTO) 3.8 10^3/uL (1.5-3.5); LYMPHOCYTES % (AUTO) 33.4 %; MEAN CORPUSCULAR HEMOGLOBIN 29.4 pg (27.0-31.0); MEAN CORPUSCULAR HGB CONC 33.9 g/dL (32.0-36.0); MEAN CORPUSCULAR VOLUME 86.6 fL (81.0-99.0); MEAN PLATELET VOLUME 9.9 fL (7.9-10.8); MONOCYTES # (AUTO) 0.8 10^3/uL (0.0-1.0); MONOCYTES % (AUTO) 6.7 %; NEUTROPHILS # (AUTO) 6.3 10^3/uL (1.5-6.6); NEUTROPHILS % (AUTO) 55.2 %; PLT - PLATELET COUNT 275 10^3/uL (130-450); RED BLOOD COUNT 4.77 10^6/uL (4.20-5.40); RED CELL DISTRIBUTION WIDTH 12.2 % (12.0-15.0); WHITE BLOOD COUNT 11.4 x10^3/uL (4.8-10.8)
[2022-08-14 18:14] LABS: BILIRUBIN,URINE NEGATIVE (NEGATIVE); GLUCOSE, URINE (UA) NEGATIVE (NEGATIVE); KETONES,URINE (UA) NEGATIVE (NEGATIVE); LEUKOCYTE ESTERASE, URINE NEGATIVE (NEGATIVE); NITRITE,URINE NEGATIVE (NEGATIVE); OCCULT BLOOD,URINE MODERATE (NEGATIVE); PROTEIN,URINE NEGATIVE (NEGATIVE); UROBILINOGEN,URINE 0.2 (NORMAL) E.U./dL (NORMAL)
[2022-08-14 18:15] LABS: CLARITY,URINE CLEAR (CLEAR); HCG UR QUAL NEGATIVE
[2022-08-14 18:21] LABS: AMORPHOUS SEDIMENT,UR Moderate /LPF; BACTERIA,URINE Few /HPF (None Seen); RBC,URINE TNTC /HPF (0-5); SQUAMOUS EPITHELIAL CELL,UR FEW Squamous (<= Few); WBC,URINE 0-3 /HPF (0-5)
[2022-08-14 18:24] LABS: ALBUMIN 4.1 g/dL (3.2-5.5); ALBUMIN/GLOBULIN RATIO 1.2 (1.0-2.2); BILIRUBIN,TOTAL 0.3 mg/dL (0.2-1.0); CALCIUM 9.1 mg/dL (8.5-10.3); CREATININE 0.9 mg/dL (0.4-1.0); POTASSIUM 3.6 mmol/L (3.5-5.0); TOTAL PROTEIN 7.5 g/dL (6.7-8.2)
[2022-08-14 19:11] VITALS: BP 139/79
--- NOTE | 2022-08-15 05:42 | Ultrasound Report ---
PROCEDURE: OB First Trimester w/TV INDICATIONS: + HM PREG TEST, VB OUTSIDE/PRIOR DATING DATA: Last menstrual period (LMP): 07/05/2022. LMP-based estimated date of delivery (LEILA): 04/11/2023. First dating scan (date and location): Today. Estimated date of delivery (LEILA) from first dating scan: Not applicable TECHNIQUE: Real-time scanning was performed of the fetus and maternal pelvic organs, with image documentation. Endovaginal scanning was also performed to better visualize the fetus and maternal ovaries. COMPARISON: None FINDINGS: No intrauterine identified. No findings suspicious for ectopic . Right ovarian corpus luteum. IMPRESSION: No identifiable intrauterine , no findings suspicious for ectopic Above discussed with No lundberg at the time of dictation. Apparently, the beta-hCG level is very low. Therefore, recommend correlation with serial beta hCGs and consideration of follow-up ultrasound in 1-2 weeks. Reviewed by: Will Mejía MD on 08/14/2022 7:11 PM PDT Approved by: Will Mejía MD on 08/14/2022 7:11 PM PDT Station ID: [id number]
== END 2022-08-14 19:10 | disposition home or self-care (01) ==
LOC: ED 17:03
DX: O20.9 Hemorrhage in early pregnancy, unspecified (principal); O99.331 Smoking (tobacco) complicating pregnancy, first trimester; F17.200 Nicotine dependence, unspecified, uncomplicated; Z3A.01 Less than 8 weeks gestation of pregnancy
CPT/HCPCS: 36415; 80053; 81001; 81003; 81025; 83690; 84702; 85025; 86900; 86901; 87086; 99284

== ENCOUNTER 2022-08-21 10:38 | Outpatient (CLI) | payer OTHER ==
[2022-08-21 11:26] LABS: THYROID STIMULATING HORMONE 3.7 uIU/mL (0.34-5.60)
[2022-08-21 11:28] LABS: FREE T4 (FREE THYROXINE) 0.78 ng/dL (0.58-1.64)
[2022-08-21 12:56] LABS: ESTIMATED AVERAGE GLUCOSE 94 mg/dL (70-100); HEMOGLOBIN A1c% 4.9 % (4.27-6.07)
== END 2022-08-21 10:39 | disposition home or self-care (01) ==
LOC: LAB 10:38
PROVIDERS: ATTEND Nurse Practitioner
DX: O26.20 Pregnancy care for patient with recurrent pregnancy loss, unspecified trimester (principal)
CPT/HCPCS: 36415; 81599; 83036; 84439; 84443; 85598; 85610; 85613; 85670; 85730; 86146; 86147

== ENCOUNTER 2022-11-18 09:19 | Emergency (ER) | payer OTHER ==
[2022-11-18 09:31] VITALS: BP 129/65
[2022-11-18 10:54] LABS: B. PARAPERTUSSIS- RESP PCR PAN NOT DETECTED; B. PERTUSSIS- RESP PCR PANEL NOT DETECTED; C. PNEUMONIAE- RESP PCR PANEL NOT DETECTED; CORONAVIRUS 229E-RESP PCR NOT DETECTED; CORONAVIRUS HKU1-RESP PCR NOT DETECTED; CORONAVIRUS NL63-RESP PCR NOT DETECTED; CORONAVIRUS OC43-RESP PCR NOT DETECTED; HUMAN METAPNEUMOVIRUS NOT DETECTED; INFLUENZA A H3- RESP PCR PANEL DETECTED; INFLUENZA B - RESP PCR PANEL NOT DETECTED; M. PNEUMONIAE- RESP PCR PANEL NOT DETECTED; PARAINFLUENZA VIRUS 1 NOT DETECTED; PARAINFLUENZA VIRUS 2 NOT DETECTED; PARAINFLUENZA VIRUS 3 NOT DETECTED; PARAINFLUENZA VIRUS 4 NOT DETECTED; RHINOVIRUS/ENTEROVIRUS NOT DETECTED; RSV- RESP PCR PANEL NOT DETECTED; SARS-CoV-2 -RESP PCR PANEL NOT DETECTED
--- NOTE | 2022-11-18 11:16 | ED Physician Documentation ---
PD HPI URI - Stated complaint Stated Complaint: FEVER/BODY ACHE - Chief complaint Chief Complaint: Resp - History obtained from History obtained from: Patient - Additional information Additional information: Patient is a 32-year-old female with no significant past medical history presenting for evaluation of fever, body aches, Productive cough since yesterday morning. 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 She denies vomiting or diarrhea and has been tolerating p.o.She denies chest pain, difficulty breathing, abdominal pain, back pain But generally feels achy everywhere. She is approximately 9 weeks . She denies vaginal bleeding or cramping. Review of Systems Constitutional: reports: Fever, Myalgias Nose: denies: Congestion Cardiac: denies: Chest pain / pressure Respiratory: reports: Cough. 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 ) Psych: Anxiety - Past Surgical History Past Surgical History: Yes Ortho: Other /INJECTION MOLD TOOLING TECHNICIAN: section - Present Medications Home Medications: Ambulatory Orders Medication Instructions Recorded Confirmed Iud 02/28/21 Sertraline HCl 100 mg PO DAILY 02/28/21 07/07/21 Multivitamin 1 tab PO DAILY 07/07/21 07/07/21 - Allergies Allergies/Adverse Reactions: Allergies Allergy/AdvReac Type Severity Reaction Status Date / Time azithromycin Allergy Intermediate Rash Verified 11/18/22 09:31 [From Zithromax Z-Álvaro] - Social History Does the pt smoke?: Yes Smoking Status: Current every day smoker Does the pt drink ETOH?: No Does the pt have substance abuse?: No - Immunizations Immunizations are current?: Yes - POLST Patient has POLST: No PD ED PE NORMAL - General General: Alert and oriented X 3, No acute distress, Well developed/nourished - HEENT HEENT: Atraumatic, Moist mucous membranes, Pharynx benign - Neck Neck: Supple, no meningeal sign - Cardiac Cardiac: RRR, No murmur - Respiratory Respiratory: No respiratory distress, Clear bilaterally - Abdomen Abdomen: Soft, Non tender, Non distended - Back Back: No CVA TTP, No spinal TTP - Derm Derm: Warm and dry - Extremities Extremities: No edema - Neuro Neuro: Normal speech Results - Vitals Vitals: Vital Signs - 24 hr 11/18/22 09:26 Temperature 36.9 C Heart Rate 102 H Respiratory 18 Rate Blood Pressure 129/65 O2 Saturation 96 Oxygen O2 Source Room air - Labs Labs: Laboratory Tests 11/18/22 09:38 Nasal Adenovirus (PCR) NOT DETECTED Nasal B. parapertussis DNA (PCR) NOT DETECTED Nasal Coronavir 229E PCR NOT DETECTED Nasal Coronavir HKU1 PCR NOT DETECTED Nasal Coronavir NL63 PCR NOT DETECTED Nasal Coronavir OC43 PCR NOT DETECTED Nasal Enterovir/Rhinovir PCR NOT DETECTED Nasal Influenza A H3 PCR DETECTED A Nasal Influenza B PCR NOT DETECTED Nasal Parainfluen 1 PCR NOT DETECTED Nasal Parainfluen 2 PCR NOT DETECTED Nasal Parainfluen 3 PCR NOT DETECTED Nasal Parainfluen 4 PCR NOT DETECTED Nasal RSV (PCR) NOT DETECTED Nasal B.pertussis DNA PCR NOT DETECTED Nasal C.pneumoniae (PCR) NOT DETECTED [place] Human Metapneumo PCR NOT DETECTED Nasal M.pneumoniae (PCR) NOT DETECTED Nasal SARS-CoV-2 (PCR) NOT DETECTED PD Medical Decision Making - ED course Complexity details: reviewed results ED course: Patient with fevers, body aches and productive cough.Her breathing is nonlabored and her lung sounds are clear. Her oxygen Levels are normal. Her abdominal exam is benign and she has no complaints of abdominal pain, back pain, bleeding or cramping.She is flu positive. Offered Tamiflu which patient declines. Patient counseled on continuing with supportive care. She is advised on concerning symptoms to return for. Departure - Departure Disposition: 01 Home, Self Care Clinical Impression: Influenza A Condition: Stable Instructions: ED Flu Comments: You have tested positive for influenza A. Please continue with acetaminophen for fevers, plenty of rest and hydration. If you develop any worsening symptoms such as labored breathing, vomiting, Vaginal bleeding or cramping or abdominal pain then please return to the emergency department. Forms: Activity restrictions Discharge Date/Time: 11/18/22 12:24
== END 2022-11-18 12:24 | disposition home or self-care (01) ==
LOC: ED 09:19
DX: J10.1 Influenza due to other identified influenza virus with other respiratory manifestations (principal); Z20.822 Contact with and (suspected) exposure to COVID-19; F17.200 Nicotine dependence, unspecified, uncomplicated
CPT/HCPCS: 87633; 99282; 99283

== ENCOUNTER 2023-07-02 11:25 | Outpatient (CLI) | payer OTHER ==
[2023-07-02 17:43] LABS: BASOPHILS # (AUTO) 0.1 10^3/uL (0.0-0.1); BASOPHILS % (AUTO) 0.7 %; EOSINOPHILS # (AUTO) 0.4 10^3/uL (0.0-0.7); EOSINOPHILS % (AUTO) 4.3 %; HCT - HEMATOCRIT 43.4 % (37.0-47.0); HGB - HEMOGLOBIN 13.6 g/dL (12.0-16.0); LYMPHOCYTES % (AUTO) 36.9 %; MEAN CORPUSCULAR HEMOGLOBIN 27.8 pg (27.0-31.0); MEAN CORPUSCULAR HGB CONC 31.3 g/dL (32.0-36.0); MEAN CORPUSCULAR VOLUME 88.8 fL (81.0-99.0); MEAN PLATELET VOLUME 10.5 fL (7.9-10.8); MONOCYTES # (AUTO) 0.7 10^3/uL (0.0-1.0); MONOCYTES % (AUTO) 8.8 %; NEUTROPHILS % (AUTO) 49.2 %; PLT - PLATELET COUNT 332 10^3/uL (130-450); RED BLOOD COUNT 4.89 10^6/uL (4.20-5.40); WHITE BLOOD COUNT 8.2 x10^3/uL (4.8-10.8)
[2023-07-02 17:58] LABS: ALBUMIN 4.4 g/dL (3.2-5.5); ALBUMIN/GLOBULIN RATIO 1.4 (1.0-2.2); ALKALINE PHOSPHATASE 64 IU/L (42-121); ALT ALANINE AMINOTRANSFERASE 27 IU/L (10-60); AST ASPARTATE AMINOTRANSFERASE 17 IU/L (10-42); BILIRUBIN,TOTAL 0.4 mg/dL (0.2-1.0); BUN - BLOOD UREA NITROGEN 12 mg/dL (6-20); CALCIUM 9.5 mg/dL (8.5-10.3); CARBON DIOXIDE - CO2 28 mmol/L (21-32); CHLORIDE 107 mmol/L (101-111); CHOL/HDL RATIO 4.8 (<4.4); CHOLESTEROL 212 mg/dL; CREATININE 0.6 mg/dL (0.6-1.3); GFR - MDRD 115 (>89); GLUCOSE 87 mg/dL (74-104); HDL CHOLESTEROL 44 mg/dL; LDL CHOLESTEROL,CALCULATED 128 mg/dL; LDL/HDL RATIO 2.9 (<4.4); POTASSIUM 4.1 mmol/L (3.5-4.5); SODIUM 139 mmol/L (135-145); TOTAL PROTEIN 7.6 g/dL (6.4-8.9); TRIGLYCERIDES 201 mg/dL (48-352); VLDL CHOLESTEROL 40 mg/dL
[2023-07-02 18:09] LABS: THYROID STIMULATING HORMONE 0.94 uIU/mL (0.34-5.60)
== END 2023-07-02 11:26 | disposition home or self-care (01) ==
LOC: LAB.N 11:25
PROVIDERS: ATTEND Nurse Practitioner
DX: Z51.81 Encounter for therapeutic drug level monitoring (principal); R53.83 Other fatigue; Z13.220 Encounter for screening for lipoid disorders
CPT/HCPCS: 36415; 80053; 80061; 83721; 84443; 85025